=== PATIENT | female | born 1945 | race Caucasian/White ===

== ENCOUNTER 2017-01-09 19:20 | Emergency (ER) | payer MEDICARE, BC ==
[2017-01-09] MEDS ORDERED: TETRACAINE HCL 0.5% OPHTH SOLN 4ML BOTTLE ONE (20:09)
[2017-01-09] MEDS ORDERED: Tetracaine 0.5% Ophth Soln 15 mL Soln RIGHT EYE ONE (20:25)
--- NOTE | 2017-01-09 20:26 | ED Physician Chart ---
Chief Complaint/HPI - Patient Information Date Seen:: 01/09/17 Time Seen:: 19:22 Chief Complaint:: eye drooping History of Present Illness:: 71-year-old female, brought in from home by daughter/caregiver, complains of acute, constant, mild to moderate, right eyelid drooping 3 days. Has associated slightly slurred speech and increased forgetfulness. Allergies:: Allergies Allergy/AdvReac Type Severity Reaction Status Date / Time morphine Allergy Verified 01/09/17 20:24 Penicillins [PCN] Allergy Verified 01/09/17 20:24 Sulfa (Sulfonamide Allergy Verified 01/09/17 20:24 Antibiotics) Vitals:: Vital Signs - 8 hr 01/09/17 19:30 Temp 97.4 F HR 56 RR 18 BP 150/83 O2 Sat % 100 Historian:: Patient, Family Member (daughter) Review:: Nurse's Note Reviewed Review of Systems - Review of Systems Other: Complete system review otherwise unremarkable except as noted in HPI. Past Medical History - Past Medical History Past Medical History: HTN, CAD, Thyroid disorder, Dementia Family History: None Social History: Non Smoker, No Alcohol, No Drug Use, Other Psychiatricy History: None Medication: Reviewed Family Medical History - Family Member Mother History Unknown: Yes Ethnicity: Non- Living Status: Physical Exam - Physical Examination Other:: INITIAL VITAL SIGNS: Reviewed by me GENERAL: Alert and interactive. No acute distress HEAD: Head is normocephalic and atraumatic EYES: EOMI. PERRL. No scleral icterus. No conjunctival injection ENT: Moist mucous membranes. NECK: Supple. No masses. Full range of motion RESPIRATORY: No tachypnea. Clear breath sounds bilaterally. No wheezing, rales, or rhonchi CV: Regular rate and rhythm. No murmurs, rubs, or gallops ABDOMEN: Soft, non-distended, non-tender. No guarding. No rebound. No masses. EXTREMITIES: No deformity. No cyanosis. No edema. SKIN: Warm and dry. No obvious rashes. NEUROLOGIC: Alert and oriented. Face is symmetric. Speech is normal. Moves all extremities equally. Motor and sensory distally intact. Somewhat very slight drooping of the right eyelid. There is some slight right sided facial paralysis. NIH = 0. No gait abnormality. Labs/Radiology/EKG Results - Radiology Results Results: CT head without contrast. Preliminary report per radiology NAD ED Septic Shock - . 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 Symptoms have been for the past 3 days. Had very low suspicion for any type of CVA or TIA over, CT scan was performed and was unremarkable. Gave Decadron for Jung's palsy. Follow-up PCP 1-2 days. Return to ER precautions given. Patient and patient's daughter both understand and agree with the plan. Reassessment Condition:: Improved - Diagnosis Diagnosis:: Jung's palsy Hypertension - Aftercare/Follow up Instructions Aftercare/Follow-Up Instructions:: Counseled pt regarding lab results/diagnosis & need follow up, Refer to Discharge Instructions - Patient Disposition Discharge/Transfer:: Home Time:: 20:38 Condition at Disposition:: Improved ED Discharge Plan - Patient Disposition Admit/Discharge/Transfer: PT DISCHARGED HOME Condition at Disposition: Improved Instructions: Jung's Palsy-Brief Additional Instructions: follow up with your primary medical doctor LUIZA
[2017-01-09] MEDS ORDERED: Dexamethasone Sodium Phos 10 mg/mL PF Vial ONE (20:52)
--- NOTE | 2017-01-10 11:13 | Diagnostic Imaging Report ---
Head CT without intravenous contrast Indication: Facial droop Comparison: None Technique: Axial images were obtained from the vertex to the skull base without IV contrast. Coronal reconstructions were made. Total DLP: 517, CTDI32.7 FINDINGS: Images of the brain obtained without contrast demonstrate no acute hemorrhage. No mass lesions identified. The ventricles and basal cisterns are patent. The dunn-white matter differentiation is preserved. There is no mass effect or midline shift. Atrophy is noted. No skull fractures identified. No soft tissue swelling. The paranasal sinuses are clear. IMPRESSION: No CT evidence of an acute intracranial abnormality. Consider follow-up MRI, if warranted. Atrophy.
== END 2017-01-09 21:40 | disposition home or self-care (01) ==
LOC: ER 19:20
DX: G51.0 Bell's palsy (principal); I10 Essential (primary) hypertension; I25.10 Atherosclerotic heart disease of native coronary artery without angina pectoris; E07.9 Disorder of thyroid, unspecified; F03.90 Unspecified dementia, unspecified severity, without behavioral disturbance, psychotic disturbance, mood disturbance, and anxiety; Z88.0 Allergy status to penicillin; Z88.2 Allergy status to sulfonamides; Z88.6 Allergy status to analgesic agent
CPT/HCPCS: 70450-TC; 70480-TC; Z7502